=== PATIENT | female | born 1965 | race Caucasian/White ===

== ENCOUNTER 2023-05-09 10:14 | Outpatient (RCR) | payer MEDICARE, BC, SELFPAY | END 2023-05-09 23:59 | disposition home or self-care (01) | LOC: ROT 10:14 | PROVIDERS: ATTENDING PHYSICIAN Internal Medicine | DX: G35 Multiple sclerosis (principal); Z73.6 Limitation of activities due to disability | CPT/HCPCS: 97110; 97112; 97140; 97167; 97530 ==

== ENCOUNTER 2023-06-20 10:07 | Outpatient (RCR) | payer MEDICARE, BC, SELFPAY | END 2023-06-20 23:59 | disposition home or self-care (01) | LOC: ROT 10:07 | PROVIDERS: ATTENDING PHYSICIAN Internal Medicine | DX: G35 Multiple sclerosis (principal); Z73.6 Limitation of activities due to disability; R26.2 Difficulty in walking, not elsewhere classified; M62.81 Muscle weakness (generalized) | CPT/HCPCS: 97110; 97112; 97530; 97535 ==

== ENCOUNTER 2023-07-18 10:07 | Outpatient (RCR) | payer MEDICARE, BC, SELFPAY | END 2023-07-18 23:59 | disposition home or self-care (01) | LOC: ROT 10:07 | PROVIDERS: ATTENDING PHYSICIAN Internal Medicine | DX: G35 Multiple sclerosis (principal); Z73.6 Limitation of activities due to disability; R26.2 Difficulty in walking, not elsewhere classified; M62.81 Muscle weakness (generalized) | CPT/HCPCS: 97110; 97112; 97530; 97535 ==

== ENCOUNTER 2023-08-15 10:24 | Outpatient (RCR) | payer MEDICARE, BC, SELFPAY | END 2023-08-15 23:59 | disposition home or self-care (01) | LOC: ROT 10:24 | PROVIDERS: ATTENDING PHYSICIAN Internal Medicine | DX: G35 Multiple sclerosis (principal); Z73.6 Limitation of activities due to disability | CPT/HCPCS: 97110; 97112; 97530; 97535 ==

== ENCOUNTER 2023-09-12 10:05 | Outpatient (RCR) | payer MEDICARE, BC, SELFPAY | END 2023-09-12 23:59 | disposition home or self-care (01) | LOC: ROT 10:05 | PROVIDERS: ATTENDING PHYSICIAN Internal Medicine | DX: G35 Multiple sclerosis (principal); Z73.6 Limitation of activities due to disability; R26.2 Difficulty in walking, not elsewhere classified; M62.81 Muscle weakness (generalized) | CPT/HCPCS: 97110; 97112; 97530; 97535 ==

== ENCOUNTER 2023-10-03 10:16 | Outpatient (RCR) | payer OTHER, MEDICARE, SELFPAY | END 2023-10-03 23:59 | disposition home or self-care (01) | LOC: ROT 10:16 | PROVIDERS: ATTENDING PHYSICIAN Internal Medicine | DX: G35 Multiple sclerosis (principal); Z73.6 Limitation of activities due to disability; R26.2 Difficulty in walking, not elsewhere classified; M62.81 Muscle weakness (generalized) | CPT/HCPCS: 97110; 97530; 97535 ==

== ENCOUNTER 2023-11-07 10:10 | Outpatient (RCR) | payer OTHER, MEDICARE, SELFPAY | END 2023-11-07 23:59 | disposition home or self-care (01) | LOC: ROT 10:10 | PROVIDERS: ATTENDING PHYSICIAN Internal Medicine | DX: G35 Multiple sclerosis (principal); Z73.6 Limitation of activities due to disability; R26.2 Difficulty in walking, not elsewhere classified; M62.81 Muscle weakness (generalized) | CPT/HCPCS: 97110; 97112; 97530 ==

== ENCOUNTER 2023-12-13 10:06 | Outpatient (RCR) | payer OTHER, MEDICARE, SELFPAY | END 2023-12-13 23:59 | disposition home or self-care (01) | LOC: ROT 10:06 | PROVIDERS: ATTENDING PHYSICIAN Internal Medicine | DX: G35 Multiple sclerosis (principal); Z73.6 Limitation of activities due to disability; R26.2 Difficulty in walking, not elsewhere classified; M62.81 Muscle weakness (generalized) | CPT/HCPCS: 97110; 97112; 97530; 97535 ==

== ENCOUNTER 2024-01-09 10:53 | Outpatient (RCR) | payer OTHER, MEDICARE, SELFPAY | END 2024-01-09 23:59 | disposition home or self-care (01) | LOC: ROT 10:53 | PROVIDERS: ATTENDING PHYSICIAN Internal Medicine | DX: G35 Multiple sclerosis (principal); Z73.6 Limitation of activities due to disability; R26.2 Difficulty in walking, not elsewhere classified; M62.81 Muscle weakness (generalized) | CPT/HCPCS: 97110; 97112; 97530 ==

== ENCOUNTER 2024-02-15 10:06 | Outpatient (RCR) | payer OTHER, MEDICARE, SELFPAY | END 2024-02-15 23:59 | disposition home or self-care (01) | LOC: ROT 10:06 | PROVIDERS: ATTENDING PHYSICIAN Internal Medicine | DX: G35 Multiple sclerosis (principal); Z73.6 Limitation of activities due to disability; R26.2 Difficulty in walking, not elsewhere classified; M62.81 Muscle weakness (generalized) | CPT/HCPCS: 97110; 97112; 97140; 97530 ==

== ENCOUNTER 2024-04-09 11:12 | Outpatient (RCR) | payer OTHER, MEDICARE, SELFPAY | END 2024-04-09 23:59 | disposition home or self-care (01) | LOC: ROT 11:12 | PROVIDERS: ATTENDING PHYSICIAN Internal Medicine | DX: G35 Multiple sclerosis (principal); Z73.6 Limitation of activities due to disability; R26.2 Difficulty in walking, not elsewhere classified; M62.81 Muscle weakness (generalized) | CPT/HCPCS: 97110; 97112; 97530 ==

== ENCOUNTER 2024-05-07 11:02 | Outpatient (RCR) | payer OTHER, MEDICARE, SELFPAY | END 2024-05-07 23:59 | disposition home or self-care (01) | LOC: ROT 11:02 | PROVIDERS: ATTENDING PHYSICIAN Internal Medicine | DX: G35 Multiple sclerosis (principal); Z73.6 Limitation of activities due to disability; R26.2 Difficulty in walking, not elsewhere classified; M62.81 Muscle weakness (generalized) | CPT/HCPCS: 97110; 97112; 97530 ==